=== PATIENT | male | born 1930 | race Caucasian/White ===

== ENCOUNTER 2020-02-09 16:59 | Emergency (ER) | payer MEDICARE ==
[2020-02-09] MEDS ORDERED: Bacitracin Oint 1 GM U/D Packet TOP ONE (18:43)
[2020-02-09] MEDS ORDERED: Diphtheria/Tetanus Toxoids,Adult (Td) 0.5 ML SDV IM ONE (18:44)
[2020-02-09] MEDS ORDERED: Lidocaine 1% with EPINEPHrine 1:100,000 50 ML MDV INFILT SCH (18:45)
--- NOTE | 2020-02-09 18:46 | EDM.PDOC ---
ED HPI GENERAL MEDICAL PROBLEM - General Chief Complaint: Laceration Stated Complaint: RIGHT LEG Time Seen by Provider: 02/09/20 18:12 Source of Information: Reports: Patient History Limitations: Reports: No Limitations - History of Present Illness INITIAL COMMENTS - FREE TEXT/NARRATIVE: 89-year-old male presents to the ED after sustaining multiple lacerations on his upper and lower extremities while walking in the [place] today. His last tetanus booster was many years ago. He is not anticoagulated. He denies other injuries. - Related Data Allergies Allergy/AdvReac Type Severity Reaction Status Date / Time cephalexin [From Keflex] Allergy Cannot Verified 02/09/20 18:54 Remember mirtazapine [From Remeron] Allergy Cannot Verified 02/09/20 18:54 Remember zolpidem [From Ambien] Allergy Cannot Verified 02/09/20 18:54 Remember Home Meds: Home Meds Amitriptyline [Elavil] 10 mg PO BEDTIME 02/09/20 [History] Gabapentin [Neurontin] 300 mg PO QID 02/09/20 [History] L.acidoph,Paracasei, B.lactis [Probiotic] 1 cap PO BID 02/09/20 [History] Loratadine [Claritin] 10 mg PO DAILY 02/09/20 [History] Mecobalamin [B12 Active] 2,000 mcg PO DAILY 02/09/20 [History] Tamsulosin [Flomax] 1 tab PO DAILY 02/09/20 [History] Vit A/Vit C/Vit E/Zinc/Copper [Preservision] 1 tab PO BID 02/09/20 [History] atorvaSTATin [Lipitor] 10 mg PO BEDTIME 02/09/20 [History] calcium polycarbophiL [Fibercon] 1 tab PO BID 02/09/20 [History] ED ROS GENERAL - Review of Systems Review Of Systems: See Below Constitutional: Reports: No Symptoms Skin: Reports: Other (Couple abrasions and lacerations on upper and lower extremities.) ED EXAM, SKIN/RASH Exam: See Below Exam Limited By: No Limitations General Appearance: Alert, WD/WN Skin: Other (5 cm superficial laceration on the posterior medial aspect of right lower extremity. He has smaller abrasions and lacerations on the right upper and right lower extremity. Logically is intact.) ED SKIN PROCEDURES - Laceration/Wound Repair Right Lower Leg Appearance: Superficial Distal NVT: Neuro & Vascular Intact, No Tendon Injury Anesthetic Type: Local Local Anesthesia - Lidocaine (Xylocaine): 1% with EPI Local Anesthetic Volume: 5cc Saline Irrigation (cc's): 500 Exploration/Debridement/Repair: Wound Explored Closed with: Sutures Lac/Wound length In cm: 5 Suture Size: 3-0 Suture Type: Nylon, Interrupted Tetanus Status Addressed: Yes Complications: No Course - Vital Signs Last Recorded V/S: Last Vital Signs Temp 36.1 C 02/09/20 19:03 Pulse 75 02/09/20 19:03 Resp 16 02/09/20 19:03 BP 138/77 02/09/20 19:03 Pulse Ox 97 02/09/20 19:03 - Orders/Labs/Meds Orders: Active Orders 24 hr Category Date Time Status Vaccines to be Administered [RC] PER UNIT ROUTINE Care 02/09/20 18:44 Active Lidocaine 1% w/EPINEPHrine [Xylocaine 1% with Med 02/09/20 18:45 Active EPINEPHrine 1:100,000] 20 ml INFILT ASDIRECTED Medication Orders Lidocaine/Epinephrine (Xylocaine 1% With Epinephrine 1:100,000) 20 ml INFILT ASDIRECTED NINFA Last Admin: 02/09/20 18:54 Dose: 20 ml Documented by: RAFITA Meds: Medications Generic Name Dose Route Start Last Admin Trade Name Freq PRN Reason Stop Dose Admin Lidocaine/Epinephrine 20 ml 02/09/20 18:45 02/09/20 18:54 Xylocaine 1% With Epinephrine 1:100,000 INFILT 20 ml ASDIRECTED NINFA Administration Discontinued Medications Generic Name Dose Route Start Last Admin Trade Name Freq PRN Reason Stop Dose Admin Bacitracin 1 dose 02/09/20 18:43 02/09/20 18:55 Bacitracin Oint 1 Gm TOP 02/09/20 18:44 1 dose ONETIME ONE Administration Tetanus/Diphtheria Toxoids 0.5 ml 02/09/20 18:44 02/09/20 18:55 Tenivac IM 02/09/20 18:45 0.5 ml .ONCE ONE Administration Departure - Departure Time of Disposition: 19:23 Disposition: DC[facility] Condition: Good Clinical Impression: Laceration - Discharge Information *PRESCRIPTION DRUG MONITORING PROGRAM REVIEWED*: No *COPY OF PRESCRIPTION DRUG MONITORING REPORT IN PATIENT CHELSEY: No Instructions: Laceration Care, Adult, [id number] Referrals: PCP,None [Primary Care Provider] - Forms: ED Department Discharge Additional Instructions: Keep your wound clean and covered with antibiotic ointment and a dressing. See your doctor in 1 week for recheck. Have your sutures removed in 10 to 14 days. Watch for any signs of secondary infection including redness, swelling or discharge. Tylenol or ibuprofen for pain. Elevate your leg and use ice packs occasionally to reduce pain and swelling. Sepsis Event Note (ED) - Focused Exam Vital Signs: Vital Signs Temp Pulse Resp BP Pulse Ox 02/09/20 19:03 36.1 C 75 16 138/77 97 02/09/20 18:21 36.1 C 75 16 138/77 97 - My Orders Last 24 Hours: My Active Orders 02/09/20 18:44 Vaccines to be Administered [RC] PER UNIT ROUTINE 02/09/20 18:45 Lidocaine 1% w/EPINEPHrine [Xylocaine 1% with EPINEPHrine 1:100,000] 20 ml INFILT ASDIRECTED - Assessment/Plan Last 24 Hours: My Active Orders 02/09/20 18:44 Vaccines to be Administered [RC] PER UNIT ROUTINE 02/09/20 18:45 Lidocaine 1% w/EPINEPHrine [Xylocaine 1% with EPINEPHrine 1:100,000] 20 ml INFILT ASDIRECTED
== END 2020-02-09 19:52 | disposition designated cancer center or children's hospital (05) ==
LOC: JP.ED 16:59
DX: S81.811A Laceration without foreign body, right lower leg, initial encounter (principal); S41.111A Laceration without foreign body of right upper arm, initial encounter; Z88.1 Allergy status to other antibiotic agents; Z88.8 Allergy status to other drugs, medicaments and biological substances; Z23 Encounter for immunization; W18.31XA Fall on same level due to stepping on an object, initial encounter
CPT/HCPCS: 12002; 90471; 90714; 99282-25